=== PATIENT | male | born 1940 | race Caucasian/White ===

== ENCOUNTER 2020-06-13 09:59 | Outpatient (REF) | payer MEDICARE, SELFPAY | END 2020-06-13 10:00 | disposition home or self-care (01) | LOC: HO.BBR 09:59 | PROVIDERS: PCP Internal Medicine; Visit Provider Internal Medicine | DX: D75.1 Secondary polycythemia (principal) | CPT/HCPCS: 36415; 85018; 99195 ==

== ENCOUNTER 2020-07-18 10:08 | Outpatient (REF) | payer MEDICARE, SELFPAY | END 2020-07-18 10:09 | disposition home or self-care (01) | LOC: HO.BBR 10:08 | PROVIDERS: Visit Provider Internal Medicine | DX: D75.1 Secondary polycythemia (principal) | CPT/HCPCS: 36415; 85014; 85018; 99195 ==

== ENCOUNTER 2020-08-15 11:05 | Outpatient (REF) | payer MEDICARE, SELFPAY | END 2020-08-15 11:06 | disposition home or self-care (01) | LOC: HO.BBR 11:05 | PROVIDERS: Visit Provider Internal Medicine | DX: D75.1 Secondary polycythemia (principal) | CPT/HCPCS: 85018 ==

== ENCOUNTER 2020-09-14 09:12 | Outpatient (REF) | payer MEDICARE, SELFPAY | END 2020-09-14 09:13 | disposition home or self-care (01) | LOC: HO.BBR 09:12 | PROVIDERS: Visit Provider Internal Medicine | DX: D75.1 Secondary polycythemia (principal) | CPT/HCPCS: 85018; 99195 ==